=== PATIENT | female | born 1995 | race Hispanic/Latino ===

== ENCOUNTER → 2018-12-22 | Outpatient (CLI) | payer BC ==
--- NOTE | 2018-12-22 16:09 | Diagnostic Imaging Report ---
Exam: Right foot fifth digit 3 views History: Trauma 2 weeks prior Comparison: None. Findings: No acute, displaced fracture or dislocation. Joint spaces are well-maintained. Soft tissues are unremarkable. Incidental note of fusion of the middle and distal phalanges of the fifth ray. Impression: 1. No acute osseous abnormality. Signed by: Dr. Shorty Jenkins M.D. on 12/22/2018 4:06 PM
== END ==
LOC: RAD 15:28
PROVIDERS: ATTEND Family Medicine
DX: S99.921A Unspecified injury of right foot, initial encounter (principal)